=== PATIENT | male | born 1970 | race Caucasian/White ===

== ENCOUNTER 2017-04-18 16:36 | Emergency (ER) | payer MEDICAID, SELFPAY ==
[~2017-04-18] VITALS: Ht 193 cm; Wt 87.0 kg
[2017-04-18 16:46] VITALS: BP 139/87
[2017-04-18] MEDS ORDERED: KETOROLAC 30 MG/1 ML IM ONE (17:30)
[2017-04-18] MEDS ORDERED: METHOCARBAMOL 750 MG TABLET PO ONE (17:30)
== END 2017-04-18 18:13 | disposition home or self-care (01) ==
LOC: ED 18:00
DX: M51.36 Other intervertebral disc degeneration, lumbar region (principal); M54.42 Lumbago with sciatica, left side
CPT/HCPCS: 72110

== ENCOUNTER 2017-05-08 16:09 | Emergency (ER) | payer MEDICAID ==
[~2017-05-08] VITALS: Ht 193 cm; Wt 86.0 kg
[2017-05-08 16:16] VITALS: BP 170/78
== END 2017-05-08 16:52 | disposition home or self-care (01) ==
LOC: ED 16:33
DX: L98.9 Disorder of the skin and subcutaneous tissue, unspecified (principal)
CPT/HCPCS: 99281

== ENCOUNTER 2018-10-23 14:03 | Emergency (ER) | payer MEDICAID ==
[~2018-10-23] VITALS: Ht 193 cm; Wt 93.0 kg
[2018-10-23 14:54] LABS: RAPID INFLUENZA A Negative (Negative); RAPID INFLUENZA B Negative (Negative)
[2018-10-23] MEDS ORDERED: DICYCLOMINE 10 MG/ML, 2ML ONE (17:26)
[2018-10-23] MEDS ORDERED: ONDANSETRON ODT 4 MG ONE (17:26)
[2018-10-23] MEDS ORDERED: ONDANSETRON ODT 4 MG PO ONE (17:30)
[2018-10-23] MEDS ORDERED: DICYCLOMINE 10 MG/ML, 2ML IM ONE (17:30)
--- NOTE | 2018-10-23 17:33 | NUR ---
TASK RN: PT MEDICATED PER EMAR. PT AWARE OF PROTOCOL OF OBS SP MEDICATION ADMIN. DESPITE EDUCATION, PT REQUESTING DC. PT MADE AWARE OF S/S OF MED RXN AND AGREES TO RETURN IF INDICATED. DC EDUCATION PROVIDED, PT DEMONSTRATES UNDERSTANDING. PT AMBULATED STEADILY TO DC WITH RN
[2018-10-23 17:34] VITALS: BP 125/80
== END 2018-10-23 17:36 | disposition home or self-care (01) ==
LOC: ED 17:25
DX: J20.8 Acute bronchitis due to other specified organisms (principal); B34.9 Viral infection, unspecified; F17.200 Nicotine dependence, unspecified, uncomplicated; R11.2 Nausea with vomiting, unspecified; Z90.89 Acquired absence of other organs; Z72.9 Problem related to lifestyle, unspecified
CPT/HCPCS: 87400; 96372; 99283; J0500; Q0162

== ENCOUNTER 2019-05-10 03:05 | Emergency (ER) | payer MEDICAID ==
[~2019-05-10] VITALS: Ht 193 cm; Wt 88.8 kg
[2019-05-10 03:26] VITALS: BP 102/67
== END 2019-05-10 05:33 | disposition home or self-care (01) ==
LOC: ED 05:21
DX: S51.011A Laceration without foreign body of right elbow, initial encounter (principal); S01.511A Laceration without foreign body of lip, initial encounter; S00.01XA Abrasion of scalp, initial encounter; S80.212A Abrasion, left knee, initial encounter; F10.10 Alcohol abuse, uncomplicated; F17.210 Nicotine dependence, cigarettes, uncomplicated; W19.XXXA Unspecified fall, initial encounter; Y93.89 Activity, other specified; Y92.488 Other paved roadways as the place of occurrence of the external cause; Y99.8 Other external cause status
CPT/HCPCS: 12032; 70450; 99284

== ENCOUNTER 2020-05-12 17:03 | Emergency (ER) | payer MEDICAID, OTHER ==
[~2020-05-12] VITALS: Ht 193 cm; Wt 89.0 kg
[2020-05-12 17:07] VITALS: BP 133/84
--- NOTE | 2020-05-12 19:17 | NUR ---
HEAD & TOE WOUNDS CLEANSED W/ STERILE SALINE. SUPERFICIAL LAC TO SCALP ABRASION AREA. PT REFUSING HAROLDO, AT THIS TIME. C/O PAIN TO LT GREAT TOE. WILL CONSULT ERP RE: HAROLDO.
--- NOTE | 2020-05-12 19:38 | NUR ---
PT REFUSING WOUND CARE EXCEPT FOR BANDAID TO GREAT TOE. STATES HE'S GOING HOME TO TAKE A SHOWER, THEN WILL DRESS HIS OWN WOUNDS. NADINE CANCINO AWARE. BANDAID APPLIED TO GREAT TOE WOUND.
--- NOTE | 2020-05-12 20:03 | NUR ---
PT DISCHARGED BY OTHER ED STAFF MEMBER.
== END 2020-05-12 20:05 | disposition home or self-care (01) ==
LOC: ED 19:50
DX: S92.422A Displaced fracture of distal phalanx of left great toe, initial encounter for closed fracture (principal); S70.02XA Contusion of left hip, initial encounter; S90.412A Abrasion, left great toe, initial encounter; S00.91XA Abrasion of unspecified part of head, initial encounter; V89.2XXA Person injured in unspecified motor-vehicle accident, traffic, initial encounter; Y93.89 Activity, other specified; Y92.488 Other paved roadways as the place of occurrence of the external cause; Y99.8 Other external cause status
CPT/HCPCS: 70450; 71045; 99284